=== PATIENT | female | born 1955 | race Caucasian/White ===

== ENCOUNTER → 2019-09-24 | Outpatient (CLI) | payer BC ==
[~2019-09-24] MED LIST: BETA.1TL TOP; ESTRTP VAG; LANS30EC PO; METO25ER PO; Maxalt10 MG; Melatonin1 MG PO; Nortriptyline H10 MG PO; Simvastatin20 MG PO; Synthroid112 MCG PO; ZOLP5 PO
[2019-09-24 18:24] LABS: Bilirubin, Urine Neg (Neg); Blood, Urine 1+ (Neg); Glucose Qualitative, Urine Neg (Neg); Ketones, Urine Neg (Neg); Leukocyte Esterase, Urine Neg (Neg); Nitrite, Urine Neg (Neg); Protein, Urine Neg (Neg); Urobilinogen, Urine NORM (Normal)
[2019-09-24 18:44] LABS: Appearance, Urine Cloudy (Clear); Color, Urine Yellow (P-Yellow)
[2019-09-24 18:45] LABS: Amorphous Heavy (0-Heavy); Bacteria Few /hpf; Red Blood Cells, Urine 0-2 /hpf (0-2); Squamous Epithelial Cells Few /hpf (Few); White Blood Cells, Urine 0-2 /hpf (0-5)
== END | disposition home or self-care (01) ==
LOC: LAB SHORT 14:00 → LAB 14:00 → LAB FUT 09-23 15:15
PROVIDERS: Physician Assistant
DX: R30.0 Dysuria (principal)
CPT/HCPCS: 81001

== ENCOUNTER 2021-02-01 08:01 | Day surgery (SDC) | payer BC ==
[~2021-02-01] VITALS: Ht 160 cm; Wt 72.6 kg
[~2021-02-01 08:01] MED LIST changes: +Alendronate Sod70 MG PO; +EMGALITY120 MG/1 M SC; -Maxalt10 MG; +Maxalt10 MG PO; +RAME8 PO
--- NOTE | 2021-02-01 10:42 | NUR ---
02/01/21 1042 Kobe Cuadra CATH PLACED PER DAT MAJANO, MS3 AND DR. DENG INTRAOPERATIVELY.
--- NOTE | 2021-02-01 20:50 | NUR ---
RETENTION: PT ATTEMPTED TO VOID W/APPX 20CC VOIDED. BLADDER SCAN READ 387ML. PARSONS PLACED PER ORDERS W/CLEAR YELLOW URINE RETURN. CALL PLACED TO DR BROOKS, PLAN FOR PT TO STAY OVERNIGHT AND ATTEMPT VOIDING TRIAL AGAIN TOMORROW.
--- NOTE | 2021-02-02 06:36 | NUR ---
POD 1 S/P LAVH W/ A&P REPAIR. PT VSS T/O NIGHT. INCISIONS CDI. PT DEANDRA REG PO, NO N/V, IS PASSING FLATUS, NO BM. PARSONS REPLACED R/T RETENTION, PLAN TO ATTEMPT VOIDING TRIAL PRIOR TO D/C HOME. PAIN MGD PER EMAR W/REP RELIEF.
--- NOTE | 2021-02-02 14:10 | NUR ---
DISCHARGE PT IS EATING, DRINKING, AND PASSING GAS. PAIN WELL CONTROLLED. AMBULATING EASILY. UNABLE TO VOID AFTER PARSONS REMOVAL. NEW PARSONS PLACED PER ORDERS. EDUCATION PROVIDED FOR LEG BAG/OVERNIGHT BAG. PATIENT FEELS COMFORTABLE WITH DISCHARGE AND HAS MEDICATIONS PRESCRIBED BY DR. BROOKS, PREFILLED AT HOME. ESCORTED OUT VIA W/C.
== END 2021-02-02 14:00 | disposition home or self-care (01) ==
LOC: ORSCMMR 08:01 → ORD 09:30 → ORSCMMR 09:30 → SURS 13:57 → ORSCMMR 13:57 → SURS 02-02 14:00
PROVIDERS: Obstetrics & Gynecology
PROC: 0JQC0ZZ Repair Pelvic Region Subcutaneous Tissue and Fascia, Open Approach (ICD-10-PCS; principal; 2021-02-01 09:45)
PROC: 0UT1FZZ Resection of Left Ovary, Via Natural or Artificial Opening With Percutaneous Endoscopic Assistance (ICD-10-PCS; principal; 2021-02-01 09:45)
PROC: 0UQF7ZZ Repair Cul-de-sac, Via Natural or Artificial Opening (ICD-10-PCS; principal; 2021-02-01 09:45)
PROC: 0UT7FZZ Resection of Bilateral Fallopian Tubes, Via Natural or Artificial Opening With Percutaneous Endoscopic Assistance (ICD-10-PCS; principal; 2021-02-01 09:45)
PROC: 0UT9FZZ Resection of Uterus, Via Natural or Artificial Opening With Percutaneous Endoscopic Assistance (ICD-10-PCS; principal; 2021-02-01 09:45)
DX: N81.89 Other female genital prolapse (principal); Z01.818 Encounter for other preprocedural examination; D25.9 Leiomyoma of uterus, unspecified; D27.1 Benign neoplasm of left ovary; N81.10 Cystocele, unspecified; N81.5 Vaginal enterocele; I10 Essential (primary) hypertension; K21.9 Gastro-esophageal reflux disease without esophagitis; E03.9 Hypothyroidism, unspecified; E78.5 Hyperlipidemia, unspecified; Z79.899 Other long term (current) drug therapy
CPT/HCPCS: 36415; 86850; 86900; 86901; 88307; A9270; J0171; J0690; J1100; J1885; J2250; J2370; J2405; J2704; J3010; J7120

== ENCOUNTER 2021-06-20 19:05 | Emergency (ER) | payer BC ==
[~2021-06-20] VITALS: Ht 170.2 cm; Wt 79.4 kg
== END 2021-06-21 00:52 | disposition home or self-care (01) ==
LOC: ER 19:05
DX: S01.81XA Laceration without foreign body of other part of head, initial encounter (principal); I10 Essential (primary) hypertension; Z91.011 Allergy to milk products; Z87.891 Personal history of nicotine dependence; Z79.899 Other long term (current) drug therapy; Z79.890 Hormone replacement therapy; W17.89XA Other fall from one level to another, initial encounter; Y93.H2 Activity, gardening and landscaping; Y92.007 Garden or yard of unspecified non-institutional (private) residence as the place of occurrence of the external cause
CPT/HCPCS: 12014; 70450; 99283-25; A9270

== ENCOUNTER 2022-02-03 08:46 | Day surgery (SDC) | payer MEDICARE ==
[~2022-02-03] VITALS: Ht 162.6 cm; Wt 75.4 kg
[2022-02-03] MEDS ORDERED: FAMO10 (09:15)
== END 2022-02-03 10:42 | disposition home or self-care (01) ==
LOC: ORSCSDS 08:46
PROVIDERS: Internal Medicine Gastroenterology
PROC: 0DB58ZX Excision of Esophagus, Via Natural or Artificial Opening Endoscopic, Diagnostic (ICD-10-PCS; principal; 2022-02-03 10:00)
PROC: 0DB88ZX Excision of Small Intestine, Via Natural or Artificial Opening Endoscopic, Diagnostic (ICD-10-PCS; principal; 2022-02-03 10:00)
PROC: 0DB68ZX Excision of Stomach, Via Natural or Artificial Opening Endoscopic, Diagnostic (ICD-10-PCS; principal; 2022-02-03 10:00)
DX: K21.00 Gastro-esophageal reflux disease with esophagitis, without bleeding (principal); K22.70 Barrett's esophagus without dysplasia; R10.13 Epigastric pain; K52.9 Noninfective gastroenteritis and colitis, unspecified; Z87.891 Personal history of nicotine dependence; Z79.899 Other long term (current) drug therapy
CPT/HCPCS: 88305; 88312; 88342; J2704; J7120

== ENCOUNTER 2025-03-28 07:57 | Day surgery (SDC) | payer MEDICARE ==
[~2025-03-28] VITALS: Ht 160 cm; Wt 59.2 kg
[~2025-03-28 07:57] MED LIST changes: +CYCL10; +EUTHYROX88 MCG PO; +FAMO10; +GABA100; +IMVEXXY10 MCG VG; +Lactated Ringer's 1,000 ML IV ONE; +METO50 PO; +NAPR220; +PANT40; +TRAZ50; +propofoL 50 ML IV ONE
[2025-03-28] MEDS ORDERED: ONDA4 (08:29)
[2025-03-28] MEDS ORDERED: Lactated Ringer's 1,000 ML IV ONE (09:22)
[2025-03-28 10:53] VITALS: BP 112/73
== END 2025-03-28 10:45 | disposition home or self-care (01) ==
LOC: ORSCSDS 07:57
PROVIDERS: Internal Medicine Gastroenterology
PROC: 0DJ08ZZ Inspection of Upper Intestinal Tract, Via Natural or Artificial Opening Endoscopic (ICD-10-PCS; principal; 2025-03-28 09:15)
DX: K22.70 Barrett's esophagus without dysplasia (principal); K21.9 Gastro-esophageal reflux disease without esophagitis; Z87.19 Personal history of other diseases of the digestive system; Z87.891 Personal history of nicotine dependence; Z79.899 Other long term (current) drug therapy
CPT/HCPCS: 88305; J2704; J7120